=== PATIENT | female | born 1940 | race Two or more races ===

== ENCOUNTER 2021-03-16 10:45 | Inpatient (IN) | payer OTHER ==
[~2021-03-16] VITALS: Ht 144.8 cm; Wt 56.7 kg
[2021-03-16] MEDS ORDERED: LOSARTAN-HCTZ1 EAC1 PO (12:41)
[2021-03-16] MEDS ORDERED: CYMBALTA PO (12:41)
[2021-03-16] MEDS ORDERED: SYNTH PO (12:42)
[2021-03-20] MEDS ORDERED: NEURONTIN800 MG PO (07:37)
[2021-03-20] MEDS ORDERED: COLACE100 MG PO (07:37)
[2021-03-20] MEDS ORDERED: PERCOCET 5-3251 EACH PO (07:37)
[2021-03-20] MEDS ORDERED: AMOX-CLAV 875-1 EACH PO (07:37)
[2021-03-20] MEDS ORDERED: MEDROLPACK PO (07:37)
== END 2021-03-22 15:08 | DRG 520 ==
LOC: O/R 03-20 06:00 → SURH 03-20 06:00
PROVIDERS: ADMIT Orthopaedic Surgery Orthopaedic Surgery of the Spine; ATTEND Orthopaedic Surgery Orthopaedic Surgery of the Spine
PROC: 01NB0ZZ Release Lumbar Nerve, Open Approach (ICD-10-PCS; 2021-03-20)
PROC: 0SB20ZZ Excision of Lumbar Vertebral Disc, Open Approach (ICD-10-PCS; principal; 2021-03-20 07:00)
DX: M48.061 Spinal stenosis, lumbar region without neurogenic claudication (principal); M54.17 Radiculopathy, lumbosacral region